=== PATIENT | female | born 1965 | race Caucasian/White ===

== ENCOUNTER → 2019-08-15 | Outpatient (CLI) | payer BC ==
[~2019-08-15] MED LIST: CIPRO500 MG PO; GLIMEPIRIDE2 MG PO; IOPAMIDOL 300MG/ML 100 ML INFUS..BTL IV ONE; METFORMIN HCL500 MG PO
--- NOTE | 2019-08-15 16:13 | Diagnostic Imaging Report ---
Nephrostogram, 08/15/2019. History: History of renal calculus. Comparison: CT abdomen 07/14/2019. Discussion: Contrast was injected via the existing left nephrostomy catheter. Multiple images were obtained from the kidney to the bladder. Fluoro time: 0.4 seconds. Dose: 15.3 mGy (MARLINE) There is filling of the left renal collecting system and ureter with contrast noted to flow into the bladder. No persistent filling defects are identified. IMPRESSION: Patent left ureter without evidence of retained stone. The left nephrostomy catheter was removed as requested. Signed by: Ray Reynolds on 08/15/2019 4:09 PM
== END ==
LOC: DX 14:15
PROVIDERS: ATTEND Urology
DX: N20.0 Calculus of kidney (principal); N13.30 Unspecified hydronephrosis
CPT/HCPCS: 50389; 74425; Q9967

== ENCOUNTER 2019-08-30 09:52 | Inpatient (IN) | payer BC ==
[~2019-08-30] VITALS: Ht 165.1 cm; Wt 122.2 kg
[2019-08-30] VITALS (10 sets, daily range): BP systolic 102–146; BP diastolic 59–73
[~2019-08-30 09:52] MED LIST changes: -IOPAMIDOL 300MG/ML 100 ML INFUS..BTL IV ONE
[2019-08-30] MEDS ORDERED: KETOROLAC TROMETHAMINE 30 MG/ML VIAL IV STA (09:55)
[2019-08-30] MEDS ORDERED: ONDANSETRON HCL INJ 2MG/ML 2ML 2 MG/ML VIAL IV STA (09:55)
[2019-08-30] MEDS ORDERED: SODIUM CHLORIDE 0.9% 1000ML 1,000 ML IV STA ×3 (09:55→11:03)
[2019-08-30] MEDS ORDERED: ACETAMINOPHEN 325 MG TAB PO ONE (10:15)
[2019-08-30 10:27] LABS: BASOPHILS % 0.4 % (0.0-1.0); EOSINOPHILS % 0.4 % (0.0-6.0); HEMATOCRIT 36.4 % (34.2-44.1); LYMPHOCYTES # (AUTO) 0.5 (1.0-3.2); LYMPHOCYTES % 9.5 % (18.0-39.1); MEAN CORPUSCULAR HEMOGLOBIN 20.8 pg (28-32); MEAN CORPUSCULAR HGB CONC 30.2 g/dL (31-35); MEAN CORPUSCULAR VOLUME 68.7 fL (81-99); MONOCYTES # (AUTO) 0.1 (0.2-0.8); MONOCYTES % 1.3 % (4.4-11.3); NEUTROPHILS # (AUTO) 4.2 (2.1-6.9); NEUTROPHILS % 87.8 % (38.7-80.0); PLATELET COUNT 172 x10e3/uL (140-360); RED CELL DISTRIBUTION WIDTH 17.4 % (11.7-14.4)
[2019-08-30 10:54] LABS: ALBUMIN 3.1 g/dL (3.5-5.0); ALBUMIN/GLOBULIN RATIO 0.7 (0.8-2.0); ANION GAP 17.1 mmol/L (8-16); CALCIUM 9.2 mg/dL (8.4-10.2); CREATININE, SERUM 1.07 mg/dL (0.57-1.11); POTASSIUM 4.1 mmol/L (3.5-5.1)
[2019-08-30] MEDS: PIPER-TAZ 3.375 GM 50 ML IV SCH ×2 (10:59→16:39)
[2019-08-30 11:02] LABS: CREATINE KINASE MB 1.4 ng/mL (0-5.0)
[2019-08-30] MEDS ORDERED: SODIUM CHLORIDE 0.9% 1000ML 1,000 ML ONE (11:07)
[2019-08-30 11:14] LABS: COLOR,URINE YELLOW (YELLOW)
[2019-08-30 11:15] LABS: CLARITY,URINE SL CLOUDY (CLEAR); LEUKOCYTE ESTERASE ,URINE NEGATIVE (NEGATIVE); NITRITE,URINE POSITIVE (NEGATIVE)
[2019-08-30] MEDS ORDERED: MORPHINE SULFATE 2 MG/ML SYR 1ML IV PRN (11:15)
[2019-08-30 11:17] LABS: PROTEIN,URINE DIPSTICK 2+ (NEGATIVE)
[2019-08-30 11:18] LABS: BILIRUBIN,URINE NEGATIVE (NEGATIVE); KETONES,URINE TRACE (NEGATIVE); URINE UROBILINOGEN 0.2 mg/dL (0.2 - 1)
[2019-08-30 11:24] LABS: BACTERIA,URINE MODERATE /HPF; EPITHELIAL CELLS,URINE FEW /LPF; RBC,URINE 21-50 /HPF (0-5); WBC,URINE (MAN) >50 /HPF (0-5)
[2019-08-30] MEDS: SODIUM CHLORIDE 0.9% 1000ML 1,000 ML IV SCH ×2 (11:30→23:15)
--- NOTE | 2019-08-30 11:40 | Diagnostic Imaging Report ---
Exam: CT abdomen and pelvis Clinical history: Renal stone Technique: Helical images of the abdomen and pelvis were obtained without contrast Findings: There is a 1 cm calcified stones in the left distal ureter with moderate hydronephrosis and hydroureter. In addition, air is noted in the left renal calyces worrisome for pyelonephritis. Punctate air collection is also noted in the bladder. The liver, adrenal glands, pancreas, are unremarkable. Punctate calcifications are noted in the spleen most consistent with calcified granulomas. Tiny gallstone is noted without evidence of the gallbladder without evidence of acute cholecystitis. The small and large bowels are normal in caliber without evidence of obstruction. There is no evidence of lymphadenopathy or free fluid. The aorta and IVC are normal in caliber. Atherosclerotic calcification of the aorta is noted. The bladder, uterus, and ovaries are within normal limits. Impression: 1. Left distal ureteral stone measuring 1 cm in diameter with moderate hydronephrosis and hydroureter and inflammatory changes and air collection in the renal calyces and bladder suggesting acute pyelonephritis. 2. Cholelithiasis without evidence of acute cholecystitis. Signed by: Dr. Oj Paulson MD on 08/30/2019 11:38 AM
[2019-08-30] MEDS ORDERED: DEXTROSE 50% SYRINGE 50 ML IV PRN ×2 (12:00→16:00)
[2019-08-30] MEDS ORDERED: IOPAMIDOL 300MG/ML 100 ML INFUS..BTL IV ONE (12:46)
[2019-08-30] MEDS ORDERED: LIDOCAINE HCL 1% LOCAL INJ 20 ML VIAL ONE (12:46)
[2019-08-30] MEDS ORDERED: SODIUM CHLORIDE 0.9% 250ML 250 ML ONE (12:46)
--- NOTE | 2019-08-30 13:18 | NUR ---
REPORT GIVEN TO RADIOLGY NURSE
[2019-08-30 13:19] LABS: INR 1.07; PROTHROMBIN TIME 14.6 seconds (11.9-14.5)
[2019-08-30 13:20] LABS: PARTIAL THROMBOPLASTIN TIME 37.1 seconds (23.8-35.5)
[2019-08-30] MEDS ORDERED: FENTANYL CITRATE/PF 100MCG/2 ML INJ ONE ×2 (13:51→14:53)
[2019-08-30] MEDS ORDERED: MIDAZOLAM HCL 2 MG/2 ML VIAL ONE ×2 (13:51→14:47)
--- NOTE | 2019-08-30 15:30 | NUR ---
RECEIVED PT FROM ER, PT S/P NEPHROSTOMY TUBE PLACEMENT PT BECAME TACHYPNIC RR INTO THE 30S AND STATES SHE FEELS SHE CANT BREATHE PLACE ON 02 STATES IT IS NOT GETTING BETTER HR INTO THE 150-160'S RAPID RESPONSE CALLED, TEAM IN ROOM CHRIS WEBBING TACKER NOTIFIED. NO NEW ORDERS AT THIS TIME
[2019-08-30] MEDS ORDERED: LABETALOL HCL 20 ML ONE (15:58)
[2019-08-30] MEDS ORDERED: ACETAMINOPHEN 325 MG TAB PO PRN (16:00)
[2019-08-30] MEDS ORDERED: METOPROLOL TARTRATE INJ 1 MG/ML VIAL IV PRN (16:00)
[2019-08-30] MEDS ORDERED: MORPHINE SULFATE INJ 4 MG/ML INJ 1ML IV PRN (16:00)
--- NOTE | 2019-08-30 16:10 | NUR ---
AWARE OF REPEAT LACTIC ACID RESULTS NO NEW ORDERS RECEIVED ROUNDING ON PATIENT AT THIS TIME
[2019-08-30 16:25] LABS: ABG HCO3 20 mmol/L (23-28); ABG PCO2 42 mmHg (41-51); ABG PH 7.29 (7.31-7.41); ABG PO2 79 mmHg (80-105)
[2019-08-30] MEDS: FAMOTIDINE 20 MG TAB PO SCH (16:30)
[2019-08-30] MEDS ORDERED: INSULIN REGULAR, HUMAN 100 UNIT/1 ML 3ML VIAL SQ SCH (16:30)
[2019-08-30] MEDS: INSULIN LISPRO 100 UNIT/1 ML 3ML VIAL SQ SCH ×2 (17:44→21:30)
--- NOTE | 2019-08-30 18:07 | Diagnostic Imaging Report ---
Exam: Chest radiograph Clinical History: Shortness of breath Findings: The cardiomediastinal silhouette and lungs are normal. The regional skeleton and soft tissue are unremarkable. There is no evidence of pleural effusion or pneumothorax. Impression: No radiographic evidence of acute cardiopulmonary disease. Signed by: Dr. Oj Paulson MD on 08/30/2019 6:04 PM
[2019-08-30] MEDS: HYDROCODONE/APAP 5MG-325MG TAB PO PRN (19:11)
[2019-08-30 19:16] LABS: CREATINE KINASE MB 2.3 ng/mL (0-5.0)
[2019-08-30] MEDS ORDERED: MELATONIN 5 MG TABLET PO PRN (21:00)
[2019-08-30] MEDS ORDERED: INSULIN GLARGINE 100 UNITS/ML VIAL SQ SCH (21:00)
[2019-08-30] MEDS: MEROPENEM 1GM 100 ML IV SCH (21:30)
--- NOTE | 2019-08-30 23:44 | Consultation ---
DATE OF CONSULTATION: Pulmonary Critical Care Consultation CHIEF COMPLAINT: Pyelonephritis, sepsis and nephrostomy tube placement. HISTORY OF PRESENT ILLNESS: The patient is a 54-year-old woman. She has a history of hypertension and diabetes. She had a kidney stone about a year ago that required stent placement. She had another kidney stone in July of this year that required hospitalization with a nephrostomy tube and intravenous antibiotics. She improved from this and was followed up by Urology as an outpatient. She had a followup study and her nephrostomy tube was removed. She now complains of flank pain and fever for one day prior to admission. She noted some dysuria, but no hematuria. She is not having any nausea or vomiting. The patient had a CT scan in the emergency department. She was found to have a ureteral stone with an obstruction and pyelonephritis. She had a nephrostomy tube placed by Radiology. She initially felt better, but had a brief episode of tachycardia and difficulty breathing. She required some additional IV fluids and some BiPAP. PAST SURGICAL HISTORY: 1. Status post ureteral stent placement. 2. Status post nephrostomy tube. PAST MEDICAL HISTORY: 1. Nephrolithiasis. 2. Hypertension. 3. Diabetes. SOCIAL HISTORY: The patient is nonsmoker. She is not a drinker. ALLERGIES: THERE ARE NO KNOWN DRUG ALLERGIES. FAMILY HISTORY: Family history is noncontributory. REVIEW OF SYSTEMS: The patient had fever the day prior to admission. She did not have headache. She has no neck pain. She has no chest pain. She is not complaining of any cough or difficulty breathing, although she did have some dyspnea earlier. She has no abdominal pain. She has no nausea or vomiting. She has no leg edema. PHYSICAL EXAMINATION: VITAL SIGNS: The patient is afebrile. The blood pressure is now 128/62 and saturation is 99%. HEENT: Shows no facial swelling or erythema. CARDIAC: Reveals regular rate and rhythm with normal S1, S2. LUNGS: Auscultation of lungs reveals clear breath sounds bilaterally. There is no wheezing. ABDOMEN: Soft, nontender. There is no rebound or guarding. EXTREMITIES: Show no leg edema or calf tenderness. There is no cyanosis or clubbing. SKIN: Shows no rashes. NEUROLOGICAL: Shows no focal abnormalities. LABORATORY DATA: White blood cell count is 4.7 and hemoglobin is 11. The platelet count is 172. The BUN to creatinine ratio is 15 to 1.07. The other electrolytes within normal limits. Lactic acid is elevated at 6.1. RADIOGRAPHIC DATA: CT scan of the abdomen and pelvis shows a distal ureteral stone with associated hydronephrosis and hydroureter. She also has cholelithiasis. IMPRESSION: 1. Pyelonephritis secondary to ureteral obstruction with severe sepsis, present on admission. 2. Diabetes. 3. Hypertension. PLAN: 1. IV fluids at 30 mL/kg. 2. Merrem for antibiotics because of her recent hospitalization and risk for healthcare associated pathogens. 3. Continue nephrostomy tube drainage. 4. Chest x-ray. 5. Continue to monitor lytes and blood counts. Mic De La Cruz MD [facility]/MODL /[id number]
[2019-08-31] VITALS (20 sets, daily range): BP systolic 87–153; BP diastolic 46–91
[2019-08-31 00:20] LABS: ALBUMIN 2.4 g/dL (3.5-5.0); ALBUMIN/GLOBULIN RATIO 0.7 (0.8-2.0); ANION GAP 15.8 mmol/L (8-16); CREATININE, SERUM 1.4 mg/dL (0.57-1.11); POTASSIUM 3.8 mmol/L (3.5-5.1)
[2019-08-31 00:28] LABS: CALCIUM 7.5 mg/dL (8.4-10.2)
[2019-08-31 00:28] LABS: ALBUMIN 2.4 g/dL (3.5-5.0); ALBUMIN/GLOBULIN RATIO 0.7 (0.8-2.0); CALCIUM 7.5 mg/dL (8.4-10.2); CREATININE, SERUM 1.22 mg/dL (0.57-1.11)
[2019-08-31 00:49] LABS: CREATINE KINASE MB 2.2 ng/mL (0-5.0)
[2019-08-31] MEDS: HYDROCODONE/APAP 5MG-325MG TAB PO PRN ×2 (02:35→10:18)
[2019-08-31 03:20] LABS: BASOPHILS % 0.3 % (0.0-1.0); EOSINOPHILS # (AUTO) 0.1 (0.0-0.4); EOSINOPHILS % 1.1 % (0.0-6.0); HEMATOCRIT 29.3 % (34.2-44.1); HEMOGLOBIN 8.7 g/dL (12.0-16.0); LYMPHOCYTES # (AUTO) 0.6 (1.0-3.2); LYMPHOCYTES % 7.8 % (18.0-39.1); MEAN CORPUSCULAR HEMOGLOBIN 20.7 pg (28-32); MEAN CORPUSCULAR HGB CONC 29.7 g/dL (31-35); MEAN CORPUSCULAR VOLUME 69.6 fL (81-99); MONOCYTES # (AUTO) 0.4 (0.2-0.8); MONOCYTES % 4.9 % (4.4-11.3); NEUTROPHILS # (AUTO) 6.2 (2.1-6.9); NEUTROPHILS % 85.5 % (38.7-80.0); PLATELET COUNT 114 x10e3/uL (140-360); RED BLOOD COUNT 4.21 x10e6/uL (3.6-5.1); RED CELL DISTRIBUTION WIDTH 17.2 % (11.7-14.4)
[2019-08-31] MEDS: SODIUM CHLORIDE 0.9% 1000ML 1,000 ML IV SCH ×3 (03:30→19:52)
[2019-08-31 03:31] LABS: MAGNESIUM 1.9 MG/DL (1.3-2.1)
[2019-08-31 03:39] LABS: CREATINE KINASE MB 1.4 ng/mL (0-5.0)
[2019-08-31 03:52] LABS: THYROID STIMULATING HORMONE 2.047 uIU/mL (0.350-4.940)
[2019-08-31 04:30] LABS: ALANINE AMINOTRANSFERASE 24 IU/L (0-55); ALBUMIN 2.3 g/dL (3.5-5.0); ALBUMIN/GLOBULIN RATIO 0.7 (0.8-2.0); ALKALINE PHOSPHATASE 110 IU/L (40-150); ANION GAP 8.9 mmol/L (8-16); BLOOD UREA NITROGEN 18 mg/dL (7-26); BUN/CREATININE RATIO 19 (6-25); CALCIUM 7.5 mg/dL (8.4-10.2); CARBON DIOXIDE 23 mmol/L (22-29); CHLORIDE 105 mmol/L (98-107); CREATININE, SERUM 0.95 mg/dL (0.57-1.11); EST GLOMERULAR FILTRATION RATE > 60 ML/MIN (60-); GLUCOSE 222 mg/dL (74-118); POTASSIUM 3.9 mmol/L (3.5-5.1); SODIUM 133 mmol/L (136-145)
[2019-08-31] MEDS: MEROPENEM 1GM 100 ML IV SCH ×3 (05:00→21:52)
[2019-08-31] MEDS: INSULIN LISPRO 100 UNIT/1 ML 3ML VIAL SQ SCH ×4 (07:34→21:00)
[2019-08-31] MEDS: FAMOTIDINE 20 MG TAB PO SCH ×2 (07:39→16:35)
--- NOTE | 2019-08-31 12:12 | Consultation ---
DATE OF CONSULTATION: 08/31/2019 Urology Consultation Consultation is called by Dr. Fiore in the emergency room. CHIEF COMPLAINT/REASON FOR CONSULTATION: Septic shock. Ureteral calculus. HISTORY OF PRESENT ILLNESS: Mrs. Chino is a very pleasant 54-year-old female with a longstanding history of recurrent calculi in urinary tract. She was last seen in July on the when she had undergone a shock wave lithotripsy on left side for ureteral calculus. She had a prior nephrostomy for a septic shock syndrome, post lithotripsy the patient had a nephrostogram, which showed a completely clear collecting system per the report, the tube was removed. Yesterday, the patient presented to the emergency room with fevers, chills, nausea, vomiting, tachycardia, and septic shock. CT scan revealed a 1 cm left UVJ stone, left hydronephrosis with air in the collecting system. The patient was admitted to the hospital, underwent a percutaneous nephrostomy placement and empiric antibiotics. She is now in ICU on pressure support. PAST MEDICAL HISTORY: As above. MEDICATIONS: Please see MAR. ALLERGIES: NKDA. SOCIAL HISTORY: Denied smoking or drinking. FAMILY HISTORY: Denied urologic stones or malignancies. REVIEW OF SYSTEMS: Noncontributory, other than problems mentioned above for 12-organ systems. PHYSICAL EXAMINATION: GENERAL: Middle-aged female, in no acute distress. Obese, currently. VITAL SIGNS: Temperature is 98.4, pulse 95, respirations 28, blood pressure 92/59. Sclerae anicteric. NECK: Supple. BACK: Without costovertebral angle tenderness bilaterally. ABDOMEN: Soft. It is nontender. It is nondistended. No palpable mass. No palpable hernias. No palpable adenopathy. GENITOURINARY: Normal female external genitalia. EXTREMITIES: No edema. NEUROLOGIC: Moves all four extremities. PSYCH: Alert and mood appropriate. SKIN: Intact. Normal color. PERTINENT LABORATORY DATA: Hemoglobin 8.7, hematocrit 29.3, platelet count 114,000, white blood cell count 7300. Sodium 133, potassium 3.9, chloride 105, bicarb 23, BUN 18, creatinine 0.95, glucose 222, calcium is 7.5. Urinalysis; showing 21-50 reds, greater than [address] scan showing 1 cm distal left ureteral calculus, proximal hydronephrosis with urine collecting system. IMPRESSION: 1. Obesity. 2. Septic shock. 3. Thrombocytopenia. 4. Hyponatremia. 5. Hypocalcemia. 6. Hydronephrosis, which was present prior to lithotripsy. PLAN: The patient has nephrostomy. We would provide supportive care. Place the patient on culture specific antibiotics. Once the urine has been sterilized, we will ureteroscope the patient and get rid of the stone. Thank you for allowing me to participate in the care of your patient. We will be happy to follow along with you. Ike Larkin MD [facility]/MODL /[id number]
[2019-08-31] MEDS: MORPHINE SULFATE 2 MG/ML SYR 1ML IV PRN ×2 (14:20→21:14)
--- NOTE | 2019-08-31 14:27 | Diagnostic Imaging Report ---
Exam: Left nephrostomy tube insertion Clinical History: Left emphysematous pyelonephritis, distal ureteral obstruction Consent: Benefits and risks were explained to the patient who gave consent to the procedure. Sedation: The procedure was performed with conscious sedation. Continuous cardiorespiratory monitoring was performed by a registered nurse throughout the procedure. The total sedation time is 60 minutes. Fluoro Time: 13 Minutes Total Images: 4 Medication: Versed 2 mg IV, fentanyl 100 mcg IV Procedure: Sterile barrier technique was followed including cap, mask, sterile gown, sterile gloves, sterile sheet, hand hygiene and 2% chlorhexidine for cutaneous antisepsis. The left flank was prepped and draped in usual sterile fashion. 2% lidocaine was used as local anesthetic. Under ultrasound guidance, the inferior pole left renal calyx was accessed. The fluoroscopic guidance, an 8 [place] Islander nephrostomy tube was advanced into the renal pelvis. Antegrade nephrostogram demonstrated moderate to severe hydronephrosis and hydroureter with abrupt cut off in the distal ureter. The catheter was secured using 2-0 Prolene and left to gravity drainage. Hemostasis was achieved. The patient tolerated the procedure well without any adverse reactions. She left the department in stable condition. Complication: None immediate Impression: 1. Left nephrostomy tube insertion as described. Signed by: Dr. Oj Paulson MD on 08/30/2019 4:47 PM
--- NOTE | 2019-08-31 17:52 | Progress Note ---
DATE: SUBJECTIVE: The patient feels better overall, but had some back pain and required additional morphine. She is not febrile. OBJECTIVE: VITAL SIGNS: Stable. HEENT: Shows no facial swelling or erythema. LYMPHATIC: Shows no submandibular cervical or supraclavicular adenopathy. CARDIAC: Reveals a regular rate and rhythm with normal S1, S2. There are no murmurs or rubs. LUNGS: Auscultation of lungs reveals clear breath sounds bilaterally. There is no wheezing. ABDOMEN: Soft and nontender. There is no rebound or guarding. EXTREMITIES: Show no leg edema or calf tenderness. There is no cyanosis or clubbing. SKIN: Shows no rashes. NEUROLOGICAL: Shows no focal abnormalities. ASSESSMENT: 1. Pyelonephritis with sepsis, present on admission. 2. Ureteral stone with ureteral obstruction. 3. Diabetes. 4. Hypertension. PLAN: 1. Continue current antibiotics. 2. Continue to monitor and control blood sugars. 3. Continue nephrostomy tube drainage. 4. Probable transfer out of intensive care unit. Mic De La Cruz MD [facility]/MODL /[id number]
[2019-08-31] MEDS: ONDANSETRON HCL INJ 2MG/ML 2ML 2 MG/ML VIAL IV PRN (18:12)
--- NOTE | 2019-08-31 18:29 | NUR ---
During interdisciplinary rounds, RD was requested to provide pt with diabetic diet education Nutrition Education Learner(s): pt Barriers: none Cultural/Language Modifications: No cultural/language modifications noted. Readiness: acceptance Method: explanation/ discussion, handout Topics: Carbohydrate counting handouts, Reading the nutrition label Understanding/Compliance: Pt verbalized understanding
[2019-08-31] MEDS: INSULIN GLARGINE 100 UNITS/ML VIAL SQ SCH (21:51)
[2019-09-01] VITALS (13 sets, daily range): BP systolic 90–159; BP diastolic 57–94
[2019-09-01] MEDS: SODIUM CHLORIDE 0.9% 1000ML 1,000 ML IV SCH ×3 (03:07→19:07)
[2019-09-01 05:13] LABS: BASOPHILS % 0.1 % (0.0-1.0); EOSINOPHILS # (AUTO) 0.1 (0.0-0.4); EOSINOPHILS % 1.3 % (0.0-6.0); HEMATOCRIT 27.1 % (34.2-44.1); HEMOGLOBIN 7.9 g/dL (12.0-16.0); LYMPHOCYTES # (AUTO) 1.1 (1.0-3.2); LYMPHOCYTES % 13.9 % (18.0-39.1); MEAN CORPUSCULAR HEMOGLOBIN 20.2 pg (28-32); MEAN CORPUSCULAR HGB CONC 29.2 g/dL (31-35); MEAN CORPUSCULAR VOLUME 69.3 fL (81-99); MONOCYTES # (AUTO) 0.5 (0.2-0.8); MONOCYTES % 6.8 % (4.4-11.3); NEUTROPHILS # (AUTO) 6.1 (2.1-6.9); NEUTROPHILS % 76.8 % (38.7-80.0); PLATELET COUNT 116 x10e3/uL (140-360); RED BLOOD COUNT 3.91 x10e6/uL (3.6-5.1); RED CELL DISTRIBUTION WIDTH 16.7 % (11.7-14.4)
[2019-09-01] MEDS: MORPHINE SULFATE 2 MG/ML SYR 1ML IV PRN ×3 (05:22→19:49)
[2019-09-01 05:35] LABS: ANION GAP 9.9 mmol/L (8-16); BLOOD UREA NITROGEN 10 mg/dL (7-26); BUN/CREATININE RATIO 14 (6-25); CALCIUM 8.1 mg/dL (8.4-10.2); CARBON DIOXIDE 25 mmol/L (22-29); CHLORIDE 104 mmol/L (98-107); CREATININE, SERUM 0.73 mg/dL (0.57-1.11); EST GLOMERULAR FILTRATION RATE > 60 ML/MIN (60-); GLUCOSE 158 mg/dL (74-118); MAGNESIUM 2.1 MG/DL (1.3-2.1); POTASSIUM 3.9 mmol/L (3.5-5.1); SODIUM 135 mmol/L (136-145)
[2019-09-01] MEDS: MEROPENEM 1GM 100 ML IV SCH ×3 (05:44→21:39)
[2019-09-01] MEDS ORDERED: SIMETHICONE 80 MG CHEW PO PRN (06:45)
[2019-09-01] MEDS: FAMOTIDINE 20 MG TAB PO SCH ×2 (07:40→16:54)
[2019-09-01] MEDS: INSULIN LISPRO 100 UNIT/1 ML 3ML VIAL SQ SCH ×4 (07:40→20:40)
[2019-09-01] MEDS: HYDROCODONE/APAP 5MG-325MG TAB PO PRN ×2 (07:41→17:01)
[2019-09-01] MEDS ORDERED: ALBUTEROL SULF 0.083% NEB SOLN 3 ML NEB NEB PRN (08:15)
--- NOTE | 2019-09-01 09:03 | NUR ---
DR. SWAN NOTIFIED OF URINE CULTURE RESULTS. NEW ORDER OBTAINED. INITIATED ISOLATION
[2019-09-01] MEDS: LORATADINE 10 MG TAB PO SCH (09:12)
[2019-09-01] MEDS ORDERED: VANCOMYCIN 1GM/NS 250 ML 250 ML IV ONE (09:15)
--- NOTE | 2019-09-01 09:30 | NUR ---
REPORT RECEIVED FROM ALECIA. PT TO THE FLOOR FROM ICU. VITALS WNL, PT DENIES NEEDS AT THISA TIME.
[2019-09-01] MEDS: ONDANSETRON HCL INJ 2MG/ML 2ML 2 MG/ML VIAL IV PRN (19:49)
[2019-09-01] MEDS: INSULIN GLARGINE 100 UNITS/ML VIAL SQ SCH (20:40)
--- NOTE | 2019-09-01 20:40 | NUR ---
PATIENT IN RESTING IN BED IN STABLE CONDITION AOX4, NO SIGNS OF DISTRESS NOTED. NEPHROSTOMY BAG IS INTACT AND FLOWING, HEMATURIA NOTED AND PATIENT VOICES PAIN AT A LEVEL OF 3 AND WAS PREVIOUSLY MEDICATED. IV FLUIDS ARE RUNNING AT ORDERED RATE AND PATIENT VOICES COMFORT. BED IS IN LOWEST POSITION, BOTH SIDE RAILS ARE UP, CALL LIGHT IS WITHIN EASY REACH, WILL CONTINUE TO MONITOR.
[2019-09-02] VITALS: BP 136/73
[2019-09-02] MEDS: HYDROCODONE/APAP 5MG-325MG TAB PO PRN ×3 (01:00→13:07)
[2019-09-02] MEDS: SODIUM CHLORIDE 0.9% 1000ML 1,000 ML IV SCH ×2 (02:50→11:07)
[2019-09-02 04:00] VITALS: BP 159/77
[2019-09-02 05:24] LABS: BASOPHILS % 0.2 % (0.0-1.0); EOSINOPHILS # (AUTO) 0.1 (0.0-0.4); EOSINOPHILS % 1.6 % (0.0-6.0); HEMATOCRIT 27.1 % (34.2-44.1); LYMPHOCYTES # (AUTO) 1.1 (1.0-3.2); LYMPHOCYTES % 17.1 % (18.0-39.1); MEAN CORPUSCULAR HEMOGLOBIN 20.3 pg (28-32); MEAN CORPUSCULAR HGB CONC 29.5 g/dL (31-35); MEAN CORPUSCULAR VOLUME 68.6 fL (81-99); MONOCYTES # (AUTO) 0.4 (0.2-0.8); MONOCYTES % 6.8 % (4.4-11.3); NEUTROPHILS # (AUTO) 4.7 (2.1-6.9); NEUTROPHILS % 73.7 % (38.7-80.0); PLATELET COUNT 125 x10e3/uL (140-360); RED BLOOD COUNT 3.95 x10e6/uL (3.6-5.1); RED CELL DISTRIBUTION WIDTH 16.8 % (11.7-14.4)
[2019-09-02] MEDS: MEROPENEM 1GM 100 ML IV SCH ×2 (05:25→14:38)
[2019-09-02 05:44] LABS: ANION GAP 11.7 mmol/L (8-16); BLOOD UREA NITROGEN 11 mg/dL (7-26); BUN/CREATININE RATIO 16 (6-25); CALCIUM 8.2 mg/dL (8.4-10.2); CARBON DIOXIDE 26 mmol/L (22-29); CHLORIDE 102 mmol/L (98-107); EST GLOMERULAR FILTRATION RATE > 60 ML/MIN (60-); GLUCOSE 192 mg/dL (74-118); MAGNESIUM 1.9 MG/DL (1.3-2.1); POTASSIUM 3.7 mmol/L (3.5-5.1); SODIUM 136 mmol/L (136-145)
--- NOTE | 2019-09-02 07:00 | NUR ---
BEDSIDE SHIFT REPORT RECEIVED FROM PAINT STOCKMAN RN MEY. PT DENIES NEEDS AT THIS TIME.
[2019-09-02] MEDS: FAMOTIDINE 20 MG TAB PO SCH (08:12)
[2019-09-02] MEDS: LORATADINE 10 MG TAB PO SCH (08:12)
[2019-09-02 08:16] VITALS: BP 172/86
[2019-09-02] MEDS: INSULIN LISPRO 100 UNIT/1 ML 3ML VIAL SQ SCH ×2 (08:40→12:19)
[2019-09-02 09:00] VITALS: BP 172/86
[2019-09-02 12:25] VITALS: BP 175/96
[2019-09-02] MEDS ORDERED: BACTRIM DS TAB1 EACH PO (15:18)
[2019-09-02] MEDS ORDERED: ACETAMINOPHEN325 M1 PO (15:18)
[2019-09-02] MEDS ORDERED: CIPRO500 MG PO (15:19)
[2019-09-02] MEDS ORDERED: CYCLOBENZAPRIN7.5 MG PO (15:20)
--- NOTE | 2019-09-03 02:13 | Discharge Summary ---
CHIEF COMPLAINT: Flank pain. HISTORY OF PRESENT ILLNESS: The patient is a 54-year-old female with past medical history of UTI, kidney stones with nephrostomy placement and removal, admitted with complaints of left flank pain and fever since 08/29, fever was 102.8. She has a left nephrostomy tube replaced due to nephrolithiasis per Dr. Larkin's note. She has a long-standing history of recurrent calculi in the urinary tract. She was last seen in July on the when she had undergone a shockwave lithotripsy on the left side for ureteral calculus. She had a prior nephrostomy for septic shock syndrome. Post lithotripsy, the patient had a nephrostogram, which showed a completely clear collecting system per the report and the tube was removed on 08/30. The patient presented to the emergency room with fever, chills, nausea, vomiting, tachycardia, and septic shock. CT scan revealed a 1 cm left UVJ stone, left hydronephrosis with air in the collecting system. The patient was admitted to the hospital, underwent a percutaneous nephrostomy placement and empiric antibiotics. She was then put in the ICU unit. She is seen today on the floor unit 205. PAST MEDICAL HISTORY: Type 2 diabetes mellitus, hypertension, COPD, asthma, UTI, kidney stones, left nephrostomy tubes with removal. PAST SURGICAL HISTORY: Nephrostomy tubes, , right side I and D. FAMILY HISTORY: Cancer in the daughter. SOCIAL HISTORY: Occasional tobacco. ALLERGIES: NO KNOWN ALLERGIES. ADMITTING DIAGNOSES: 1. Nephrolithiasis/pyelonephritis with septic shock. 2. Type 2 diabetes mellitus. 3. Hypertension. 4. Chronic obstructive pulmonary disease. DISCHARGE DIAGNOSES: 1. Nephrolithiasis/pyelonephritis with Klebsiella pneumoniae and multidrug resistant organism methicillin-resistant Staphylococcus aureus, present on arrival, status post nephrostomy tubes, left nephrostomy in situ. 2. Uncontrolled type 2 diabetes mellitus. 3. Uncontrolled hypertension. 4. Chronic obstructive pulmonary disease without acute exacerbation. Admitting labs on 08/30; WBC 4.74, hemoglobin 11, hematocrit 36.4, and platelets 172. INR 1.07, PTT 37.1. Sodium 134, potassium 4.1, chloride 97, CO2 of 24, BUN 15, creatinine 1.07, estimated GFR 54, glucose 394. Lactic acid 4.7, AST 15, ALT 20, alkaline phosphatase 157. Creatine kinase 33, CK-MB 1.4. Troponin I 0.005. Lipase 21. Hemoglobin A1c on 08/31 was 10.0%. Cardiac biomarkers were negative x3. Urine Gram stain, culture and sensitivity was collected on 08/30 and subsequently recollected. The recollection shows gram-negative rods in the final report, also please refer to urine from 08/30 for ID and sensitivity, which was Klebsiella pneumoniae and multidrug resistant MRSA. Ultrasound on 08/30 showed left nephrostomy tube insertion. Nephrostogram done on the same day. CT of the abdomen and pelvis showed left distal ureteral stone measuring 1 cm in diameter with moderate hydronephrosis and hydroureter and inflammatory changes and air collection in the renal calyceal calyces and bladder suggesting acute pyelonephritis, cholelithiasis without evidence of acute cholecystitis. Chest x-ray was negative. Discharge chemistry; sodium 136, potassium 3.7, chloride 102, CO2 of 26, BUN 11, creatinine 0.70, estimated GFR greater than 60, glucose 192, calcium 8.2, magnesium 1.9. WBC 6.31, hemoglobin 8.0, hematocrit 27.1, and platelets 125. The patient to continue on cardiac diet. Activity as tolerated. Left nephrostomy tube with clear brown-tinged liquid. The patient to follow up with Dr. Larkin as directed. Dr. Mic De La Cruz was also consulted with Critical Care Medicine. Follow up with PCP in 1 to 2 weeks. Send the patient home on p.r.n. Tylenol, Bactrim DS b.i.d. for 2 weeks, Cipro 500 mg p.o. q.12 hours for 2 weeks also for UTI, and cyclobenzaprine 7.5 mg p.o. b.i.d. p.r.n. for complaints of muscle spasms. Dictated by Abdiel Harry, [employer] Gerardo Moseley MD [facility]/MODL /[id number]
== END 2019-09-02 15:22 | disposition home or self-care (01) | DRG 871 ==
LOC: ER 09:52 → ERHOLD 11:07 → ICU 15:30 → MED/SURG2 09-01 09:24
PROVIDERS: ADMIT Internal Medicine; ATTEND Internal Medicine
PROC: 0T9130Z Drainage of Left Kidney with Drainage Device, Percutaneous Approach (ICD-10-PCS; principal; 2019-08-30)
DX: A41.9 Sepsis, unspecified organism (principal); R65.21 Severe sepsis with septic shock; E87.1 Hypo-osmolality and hyponatremia; N13.30 Unspecified hydronephrosis; N20.1 Calculus of ureter; Z68.41 Body mass index [BMI] 40.0-44.9, adult; N10 Acute pyelonephritis; Z16.35 Resistance to multiple antimicrobial drugs; D69.6 Thrombocytopenia, unspecified; E83.51 Hypocalcemia; Z87.442 Personal history of urinary calculi; J44.9 Chronic obstructive pulmonary disease, unspecified; Z80.9 Family history of malignant neoplasm, unspecified; E66.01 Morbid (severe) obesity due to excess calories; Z93.6 Other artificial openings of urinary tract status; B96.1 Klebsiella pneumoniae [K. pneumoniae] as the cause of diseases classified elsewhere; E11.65 Type 2 diabetes mellitus with hyperglycemia; Z79.84 Long term (current) use of oral hypoglycemic drugs
CPT/HCPCS: 36415; 36600; 50430; 71045; 74176; 74470; 76942; 80048; 80053; 81001; 82550; 82553; 82805; 82948; 83036; 83605; 83690; 83735; 84443; 84484; 85025; 85610; 85730; 87040; 87086; 87186; 93005; 94660; 96372; 99284; C1769; J1815; J1885; J2001; J2250; J2270; J2405; J2543; J3010; J7030; J7050; Q9967

== ENCOUNTER 2019-09-14 19:57 | Emergency (ER) | payer BC ==
[~2019-09-14] VITALS: Ht 165.1 cm; Wt 122.0 kg
[~2019-09-14 19:57] MED LIST changes: +ACETAMINOPHEN325 M1 PO; +BACTRIM DS TAB1 EACH PO; +CYCLOBENZAPRIN7.5 MG PO
== END 2019-09-14 20:45 | disposition home or self-care (01) ==
LOC: ER 19:57
DX: N99.522 Malfunction of incontinent external stoma of urinary tract (principal); I10 Essential (primary) hypertension; E11.9 Type 2 diabetes mellitus without complications; J44.9 Chronic obstructive pulmonary disease, unspecified; M06.9 Rheumatoid arthritis, unspecified
CPT/HCPCS: 99282

== ENCOUNTER → 2019-10-05 | Day surgery (SDC) | payer BC ==
[~2019-10-05] MED LIST changes: +DEXAMETHASONE SOD PHOS INJ 4 MG/ML VIAL ONE; +FENTANYL CITRATE/PF 100MCG/2 ML INJ ONE; +GENTAMICIN 120MG/NS 100ML 100 ML ONE; +INSULIN REGULAR, HUMAN 100 UNIT/1 ML 3ML VIAL ONE; +IOPAMIDOL 300MG/ML 50ML INFUS..BTL IV ONE; +LIDOCAINE HCL 2% LOCAL INJ 5 ML SDV VIAL INJ ONE; +MIDAZOLAM HCL 2 MG/2 ML VIAL ONE; +ONDANSETRON HCL INJ 2MG/ML 2ML 2 MG/ML VIAL ONE; +PROPOFOL IV EMULSION 10 MG/ML 20 ML VIAL ONE; +ROCURONIUM BROMIDE 10 MG/ML 5ML VIAL IV ONE; +SEVOFLURANE INHAL SOLN 250 ML PEN BTL ONE; +SUCCINYLCHOLINE CHLORIDE 20 MG/ML 10ML VIAL ONE
[2019-10-05 11:30] VITALS: BP 129/76
--- NOTE | 2019-10-05 13:14 | Operative Report ---
DATE OF PROCEDURE: 10/05/2019 SURGEON: Ike Larkin MD PREOPERATIVE DIAGNOSES: 1. Left nephrostomy. 2. Left hydronephrosis. 3. Left ureteral calculus. POSTOPERATIVE DIAGNOSES: 1. Left nephrostomy. 2. Left hydronephrosis. 3. Left ureteral calculus. PROCEDURES: 1. Cystourethroscopy with placement of a left indwelling stent (entirely separate procedure for diagnosis of left hydronephrosis). 2. Left-sided ureteroscopy with laser lithotripsy (entirely separate procedure for left ureteral calculus). 3. Left-sided ureteroscopy, stone extraction (entirely separate procedure with explicit purpose of sending stones for analysis, not required for laser lithotripsy). 4. Supervision of fluoroscopy. 5. Interpretation of retrograde pyelography. 6. Removal of percutaneous nephrostomy. ANESTHESIA: General. ESTIMATED BLOOD LOSS: Minimal. COMPLICATIONS: None. INDICATIONS FOR PROCEDURE: Vishal Chino is a very pleasant 54-year-old female patient. She had urinary tract infections, sepsis, and hydronephrosis, necessitating a nephrostomy placement. The patient's nephrostomy has stopped draining, has not put out anything for the past 24 hours. She states she has been having flank pain and has not passed the stones. She and I had an extensive discussion regarding the lack of output from the nephrostomy likely a blocked kidney in the fact that this procedure is immediately medically necessary to correct a serious medical condition in Ms. Chino, who without immediate performance of this procedure will be at risk for serious adverse medical consequences or including, but not limited to hydronephrosis, renal failure, sepsis, infections. She voiced understanding the options, alternatives, risks, and benefits, and elected to proceed. PROCEDURE IN DETAIL: After informed consent was obtained, the patient was taken to the operative suite, placed in supine on the operating table, underwent general anesthesia by Anesthesia Service, placed in dorsal lithotomy position and sterilely prepped and draped for cystoscopy. A Cypriot cystoscope was inserted per urethra. Normal urethra was noted. Panendoscopy of the bladder revealed no tumors, no stones. Ureteral orifice catheterized. Retrograde pyelogram was performed revealing a delicate distal ureter. There was a very large approximately 6 mm mid ureteral stone. A guidewire was inserted and it was clear that the nephrostomy was outside the collecting system. There was hydronephrosis seen. A 365 micron laser fiber was advanced in the stone. Stone was broken into multiple small fragments, which was basket extracted and passed off the table as specimens. At this time, a 7 x 26 cm ureteral stent was placed with a coil in the renal pelvis and a coil in the bladder. String was left outside and taped to the inner thigh. The bladder was drained. The patient was awakened from anesthesia and transported to the recovery room in excellent condition. Supervision of fluoroscopy and interpretation of retrograde pyelography: I was present for the entire procedure and supervised fluoroscopy. There was no radiologist present. Attention was turned towards the left ureteral orifice and catheterized. Retrograde pyelogram was performed revealing delicate ureter, very large 6 x 6 mid ureteral calculus, proximal hydronephrosis. Postoperative views on the left side revealed stent in adequate position. MD CHRISTIANO Prajapati/BRADY /[id number]
== END | disposition home or self-care (01) ==
LOC: OR 07:59
PROVIDERS: ATTEND Urology
DX: Z43.6 Encounter for attention to other artificial openings of urinary tract (principal); N20.1 Calculus of ureter; N13.30 Unspecified hydronephrosis; J44.9 Chronic obstructive pulmonary disease, unspecified; I10 Essential (primary) hypertension; E11.9 Type 2 diabetes mellitus without complications; F17.210 Nicotine dependence, cigarettes, uncomplicated; Z79.84 Long term (current) use of oral hypoglycemic drugs
CPT/HCPCS: 36415; 50389; 52356; 74420; 81025; 82948; 88300; 93005; C1758; C1769; C2617; J0330; J1100; J1580; J2001; J2250; J2405; J2704; J3010; Q9967; J1817

== ENCOUNTER → 2019-11-07 | Outpatient (CLI) | payer BC ==
[~2019-11-07] MED LIST changes: -DEXAMETHASONE SOD PHOS INJ 4 MG/ML VIAL ONE; -FENTANYL CITRATE/PF 100MCG/2 ML INJ ONE; -GENTAMICIN 120MG/NS 100ML 100 ML ONE; -INSULIN REGULAR, HUMAN 100 UNIT/1 ML 3ML VIAL ONE; -IOPAMIDOL 300MG/ML 50ML INFUS..BTL IV ONE; -LIDOCAINE HCL 2% LOCAL INJ 5 ML SDV VIAL INJ ONE; -MIDAZOLAM HCL 2 MG/2 ML VIAL ONE; -ONDANSETRON HCL INJ 2MG/ML 2ML 2 MG/ML VIAL ONE; -PROPOFOL IV EMULSION 10 MG/ML 20 ML VIAL ONE; -ROCURONIUM BROMIDE 10 MG/ML 5ML VIAL IV ONE; -SEVOFLURANE INHAL SOLN 250 ML PEN BTL ONE; -SUCCINYLCHOLINE CHLORIDE 20 MG/ML 10ML VIAL ONE
--- NOTE | 2019-11-07 13:04 | Diagnostic Imaging Report ---
Exam: KUB - 2 views Indication: Renal calculus Comparison: Abdomen and pelvis CT of 08/30/2019 Findings: No radiographically apparent renal calculi. Nonobstructive bowel gas pattern. No free air. Subcentimeter phleboliths in the pelvis. Impression: No radiographically apparent renal calculi. Signed by: Eloy Almazan MD on 11/07/2019 1:01 PM
== END ==
LOC: RAD 10:55
PROVIDERS: ATTEND Urology
DX: N20.0 Calculus of kidney (principal)
CPT/HCPCS: 74018

== ENCOUNTER → 2020-02-11 | Outpatient (CLI) | payer BC ==
--- NOTE | 2020-02-11 15:06 | Diagnostic Imaging Report ---
Exam: KUB - 2 views Indication: Renal calculus Comparison: KUB 11/07/2019 Findings: No radiographically apparent urinary calculi. Nonobstructive bowel gas pattern. No free air. Punctate calcific densities in the left upper quadrant likely represent calcified granulomas of the spleen. Phleboliths in the pelvis. No acute osseous injury. Impression: No radiographically apparent urinary calculi. Signed by: Eloy Almazan MD on 02/11/2020 3:02 PM
== END ==
LOC: RAD 14:31
PROVIDERS: ATTEND Urology
DX: N20.0 Calculus of kidney (principal)
CPT/HCPCS: 74018

== ENCOUNTER → 2020-05-09 | Outpatient (CLI) | payer BC | END | disposition home or self-care (01) | LOC: RAD 15:26 | PROVIDERS: ATTEND Urology | DX: N20.0 Calculus of kidney (principal) | CPT/HCPCS: 74018 ==